=== PATIENT | male | born 1965 | race Caucasian/White ===

== ENCOUNTER 2019-04-13 12:52 | Emergency (ER) | payer MEDICAID, OTHER ==
[~2019-04-13] VITALS: Ht 170.2 cm; Wt 79.4 kg
[~2019-04-13 12:52] MED LIST: VICODIN; [UNRECOGNIZED DRUG - OTHER]
[2019-04-13 17:43] LABS: Urine Bacteria NONE SEEN /hpf (None Seen); Urine Blood Negative /uL (Negative); Urine Specific Gravity 1.012 (1.001-1.035); Urine WBC 1 /hpf (0 - 3)
[2019-04-13 18:40] VITALS: BP 134/92
== END 2019-04-13 18:44 | disposition home or self-care (01) ==
LOC: ER 12:52
DX: K40.90 Unilateral inguinal hernia, without obstruction or gangrene, not specified as recurrent (principal); F17.210 Nicotine dependence, cigarettes, uncomplicated; Z86.711 Personal history of pulmonary embolism; Z87.442 Personal history of urinary calculi; Z98.61 Coronary angioplasty status
CPT/HCPCS: 74176; 81001; 93005

== ENCOUNTER 2019-07-03 22:16 | Emergency (ER) | payer MEDICAID, OTHER ==
[~2019-07-03] VITALS: Ht 172.7 cm; Wt 72.6 kg
[2019-07-03 23:28] LABS: Basophils # (auto) 0 uL; Basophils % (auto) 0.6 % (0.0-2.0); Eosinophils # (auto) 0 uL; Eosinophils % (auto) 0.1 % (0.0-7.0); Hematocrit 42.3 % (41.0-53.0); Hemoglobin 14.6 g/dL (13.5-17.5); Lymphocytes # (auto) 0.8 uL; Lymphocytes % (auto) 10.6 % (10.0-50.0); Mean Corpuscular Hemoglobin 30.9 pg (28.0-32.0); Mean Corpuscular Hgb Conc. 34.4 g/dL (32.0-36.0); Mean Corpuscular Volume 89.9 fL (80.0-100.0); Monocytes # (auto) 0.4 uL; Monocytes % (auto) 5.4 % (0.0-12.0); Neutrophils # (auto) 6.4 uL; Neutrophils % (auto) 83.3 % (37.0-80.0); Platelet Count (auto) 153 10^3/uL (140-450); Red Blood Cells 4.71 10^6/uL (4.5-5.90); Red Cell Distribution Width 12.8 % (11.8-14.3); White Blood Cell 7.7 10^3/uL (4.4-10.8)
[2019-07-03 23:49] LABS: Albumin 3.7 g/dL (3.4-5.0); Anion Gap 7 (5-15); Blood Urea Nitrogen 12 mg/dL (7-18); Calcium 8.6 mg/dL (8.5-10.1); Carbon Dioxide 27 mmol/L (21-32); Chloride 106 mmol/L (98-107); GFR African American 112 mL/min; GFR Non-African American 92 mL/min; Glucose 152 mg/dL (74-106); Magnesium 1.6 mg/dL (1.6-2.6); Potassium 3.2 mmol/L (3.5-5.1); Sodium 140 mmol/L (136-145)
[2019-07-04 00:02] LABS: Alanine Aminotransferase 32 U/L (16-61); Alkaline Phosphatase 78 U/L (45-117); Aspartate Aminotransferase 37 U/L (15-37); Total Protein 7.1 g/dL (6.4-8.2)
[2019-07-04 01:03] LABS: Urine Bacteria NONE SEEN /hpf (None Seen); Urine Blood TRACE /uL (Negative); Urine Mucus FEW (None Seen); Urine Specific Gravity 1.021 (1.001-1.035); Urine WBC 6 /hpf (0 - 3)
[2019-07-04 01:17] LABS: Amphetamine Screen, Urine POSITIVE (NEGATIVE); Benzodiazephine Screen, Urine NEGATIVE (NEGATIVE); Cannabinoid Screen, Urine NEGATIVE (NEGATIVE); Cocaine Screen, Urine NEGATIVE (NEGATIVE)
[2019-07-04 01:24] LABS: Barbiturate Scree,Urine NEGATIVE (NEGATIVE); Opiate Scree,Urine NEGATIVE (NEGATIVE); Phencyclidine Screen, Urine NEGATIVE (NEGATIVE)
[2019-07-04] MEDS ORDERED: SODIUM CHLORIDE 0.9% 1,000 ML IV ONE ×2 (02:00→02:45)
[2019-07-04] MEDS ORDERED: LORazepam 0.5 MG TAB PO ONE (02:45)
[2019-07-04 03:06] VITALS: BP 175/98
== END 2019-07-04 03:54 | disposition home or self-care (01) ==
LOC: ER 22:16 → EDBD 22:16 → UNDOADMIN 22:17 → OVERFLOW 22:17 → ER 07-04 01:50
DX: F15.980 Other stimulant use, unspecified with stimulant-induced anxiety disorder (principal); R00.0 Tachycardia, unspecified; I10 Essential (primary) hypertension; F17.210 Nicotine dependence, cigarettes, uncomplicated
CPT/HCPCS: 36415; 71045; 80053; 80307; 81001; 83735; 83880; 84484; 85025; 85379; 93005; 99284; J7030

== ENCOUNTER 2019-07-05 18:09 | Emergency (ER) | payer MEDICAID ==
[~2019-07-05] VITALS: Ht 162.6 cm; Wt 63.5 kg
[2019-07-05 18:54] LABS: Basophils # (auto) 0 uL; Eosinophils # (auto) 0 uL; Hematocrit 48.5 % (41.0-53.0); Hemoglobin 16.4 g/dL (13.5-17.5); Lymphocytes # (auto) 0.6 uL; Lymphocytes % (auto) 3.1 % (10.0-50.0); Mean Corpuscular Hemoglobin 30.6 pg (28.0-32.0); Mean Corpuscular Hgb Conc. 33.7 g/dL (32.0-36.0); Mean Corpuscular Volume 90.8 fL (80.0-100.0); Monocytes # (auto) 0.8 uL; Monocytes % (auto) 4.3 % (0.0-12.0); Neutrophils # (auto) 17.9 uL; Neutrophils % (auto) 92.6 % (37.0-80.0); Platelet Count (auto) 203 10^3/uL (140-450); Red Blood Cells 5.35 10^6/uL (4.5-5.90); Red Cell Distribution Width 13.1 % (11.8-14.3); White Blood Cell 19.3 10^3/uL (4.4-10.8)
[2019-07-05 19:15] LABS: Albumin 4.3 g/dL (3.4-5.0); Potassium 3.5 mmol/L (3.5-5.1)
[2019-07-05 19:19] LABS: BUN/Creatinine Ratio 10.8; Bilirubin, Total 1.7 mg/dL (0.2-1.0); Total Protein 8.6 g/dL (6.4-8.2)
[2019-07-06] MEDS ORDERED: LORazepam 0.5 MG TAB PO ONE (01:15)
[2019-07-06] MEDS ORDERED: LORazepam 0.5 MG TAB ONE (01:18)
[2019-07-06 02:08] LABS: Urine Bacteria FEW /hpf (None Seen); Urine Blood 3+ /uL (Negative); Urine Hyaline Cast MANY /lpf (0 - 2); Urine Mucus FEW (None Seen); Urine Specific Gravity 1.016 (1.001-1.035); Urine WBC 5 /hpf (0 - 3)
[2019-07-06 02:09] LABS: Alcohol, Urine < 3.0 mg/dL (0-5); Amphetamine Screen, Urine POSITIVE (NEGATIVE); Barbiturate Scree,Urine NEGATIVE (NEGATIVE); Benzodiazephine Screen, Urine NEGATIVE (NEGATIVE); Cannabinoid Screen, Urine NEGATIVE (NEGATIVE); Cocaine Screen, Urine NEGATIVE (NEGATIVE); Opiate Scree,Urine NEGATIVE (NEGATIVE); Phencyclidine Screen, Urine NEGATIVE (NEGATIVE)
[2019-07-06 08:13] VITALS: BP 133/81
== END 2019-07-06 10:05 | disposition home or self-care (01) ==
LOC: ER 18:09 → EDBD 18:09 → ER 07-06 10:05
DX: F10.129 Alcohol abuse with intoxication, unspecified (principal); F19.90 Other psychoactive substance use, unspecified, uncomplicated; I10 Essential (primary) hypertension; F17.210 Nicotine dependence, cigarettes, uncomplicated; Z88.8 Allergy status to other drugs, medicaments and biological substances; Z88.5 Allergy status to narcotic agent; Y90.0 Blood alcohol level of less than 20 mg/100 ml
CPT/HCPCS: 36415; 71045; 76705; 80053; 80307; 80320; 81001; 85025; 87040; 87086

== ENCOUNTER 2020-06-18 13:27 | Emergency (ER) | payer MEDICAID ==
[~2020-06-18] VITALS: Ht 172.7 cm; Wt 77.1 kg
[2020-06-18 13:45] VITALS: BP 127/96
[2020-06-18] MEDS ORDERED: KETOROLAC TROMETH 60MG/2ML VIAL IM ONE (16:15)
== END 2020-06-18 16:56 | disposition home or self-care (01) ==
LOC: ER 13:27
DX: G44.319 Acute post-traumatic headache, not intractable (principal); M50.30 Other cervical disc degeneration, unspecified cervical region; M54.12 Radiculopathy, cervical region; I10 Essential (primary) hypertension; Z87.442 Personal history of urinary calculi
CPT/HCPCS: 70450; 72040; 96372; 99284; J1885

== ENCOUNTER 2020-09-02 10:02 | Emergency (ER) | payer MEDICAID ==
[~2020-09-02] VITALS: Ht 172.7 cm; Wt 72.6 kg
[2020-09-02] MEDS ORDERED: THIAMINE 100mg/ml INJ (200mg/2ml VIAL) IV ONE (10:45)
[2020-09-02] MEDS ORDERED: SODIUM CHLORIDE 0.9% 1,000 ML IVB ONE (10:45)
[2020-09-02 13:27] LABS: Urine Bacteria NONE SEEN /hpf (None Seen); Urine Blood TRACE /uL (Negative); Urine Specific Gravity 1.006 (1.001-1.035); Urine WBC <1 /hpf (0 - 3)
[2020-09-02 13:45] LABS: Amphetamine Screen, Urine NEGATIVE (NEGATIVE); Barbiturate Scree,Urine NEGATIVE (NEGATIVE); Benzodiazephine Screen, Urine NEGATIVE (NEGATIVE); Cannabinoid Screen, Urine NEGATIVE (NEGATIVE); Cocaine Screen, Urine NEGATIVE (NEGATIVE); Opiate Scree,Urine NEGATIVE (NEGATIVE); Phencyclidine Screen, Urine NEGATIVE (NEGATIVE)
[2020-09-02 15:45] VITALS: BP 117/76
== END 2020-09-02 16:45 | disposition left against medical advice (07) ==
LOC: ER 10:02 → EDBD 10:02 → EDUNIT# 10:02 → ER 16:45
DX: F10.129 Alcohol abuse with intoxication, unspecified (principal); E86.0 Dehydration; F17.210 Nicotine dependence, cigarettes, uncomplicated; Z87.442 Personal history of urinary calculi; Y90.8 Blood alcohol level of 240 mg/100 ml or more
CPT/HCPCS: 36415; 71045; 80307; 80320; 81001; 96361; 96374; 99284; J3411; J7030; 93005

== ENCOUNTER 2023-04-01 09:58 | Emergency (ER) | payer MEDICAID ==
[~2023-04-01] VITALS: Ht 170.2 cm; Wt 76.7 kg
[2023-04-01 13:18] VITALS: TEMP 99.1; O2SAT 99
[2023-04-01] MEDS ORDERED: ONDANSETRON ODT 4 MG TAB PO ONE (14:00)
[2023-04-01] MEDS ORDERED: MORPHINE SULFATE INJ 2 MG/ml SYRG IM ONE (14:00)
[2023-04-01 14:17] VITALS: BP 153/96; PULSE 90; RESP 18
[2023-04-01] MEDS ORDERED: HYDR-4798 PO (14:39)
== END 2023-04-01 14:53 | disposition home or self-care (01) ==
LOC: ER 09:58
DX: G89.29 Other chronic pain (principal); M54.50 Low back pain, unspecified; I10 Essential (primary) hypertension; I26.99 Other pulmonary embolism without acute cor pulmonale; F17.210 Nicotine dependence, cigarettes, uncomplicated; Z87.442 Personal history of urinary calculi; Z98.890 Other specified postprocedural states; Z79.1 Long term (current) use of non-steroidal anti-inflammatories (NSAID); Z79.899 Other long term (current) drug therapy
CPT/HCPCS: 96372; 99283; J2270; Q0162

== ENCOUNTER 2023-04-09 08:15 | Emergency (ER) | payer MEDICAID ==
[~2023-04-09] VITALS: Ht 170.2 cm; Wt 78.0 kg
[~2023-04-09 08:15] MED LIST changes: +HYDR-4798 PO
[2023-04-09 08:23] VITALS: BP 104/60; TEMP 98.8
[2023-04-09 08:26] VITALS: PULSE 115; RESP 18; O2SAT 96
[2023-04-09] MEDS ORDERED: HYDROcodone-ACET 10/325MG TAB PO ONE (09:00)
[2023-04-09] MEDS ORDERED: HYDR-4072 PO (09:24)
== END 2023-04-09 09:36 | disposition home or self-care (01) ==
LOC: ER 08:15
DX: G89.29 Other chronic pain (principal); M54.9 Dorsalgia, unspecified; F17.210 Nicotine dependence, cigarettes, uncomplicated; I10 Essential (primary) hypertension; Z87.442 Personal history of urinary calculi; Z76.0 Encounter for issue of repeat prescription

== ENCOUNTER 2023-04-20 11:57 | Emergency (ER) | payer MEDICAID ==
[~2023-04-20] VITALS: Ht 170.2 cm; Wt 74.4 kg
[~2023-04-20 11:57] MED LIST changes: +HYDR-4072 PO
[2023-04-20] MEDS ORDERED: HYDROcodone-ACET 10/325MG TAB PO ONE (13:15)
[2023-04-20] MEDS ORDERED: HYDR-4798 PO (13:19)
[2023-04-20 13:31] VITALS: BP 115/80; PULSE 85; RESP 18; O2SAT 99
== END 2023-04-20 13:33 | disposition home or self-care (01) ==
LOC: ER 11:57
DX: G89.29 Other chronic pain (principal); M54.50 Low back pain, unspecified; I10 Essential (primary) hypertension; F17.210 Nicotine dependence, cigarettes, uncomplicated; Z76.0 Encounter for issue of repeat prescription; Z79.899 Other long term (current) drug therapy

== ENCOUNTER 2023-08-01 15:50 | Emergency (ER) | payer MEDICAID ==
[~2023-08-01] VITALS: Ht 172.7 cm; Wt 77.2 kg
[2023-08-01 16:55] VITALS: BP 145/95; PULSE 115; RESP 18; TEMP 98.6; O2SAT 99
[2023-08-01] MEDS ORDERED: HYDROcodone-ACET 5/325MG TAB PO ONE (17:00)
[2023-08-01] MEDS ORDERED: TRAM50TA2 PO ×2 (17:11→17:13)
== END 2023-08-01 17:36 | disposition home or self-care (01) ==
LOC: EDBD 15:50 → ER 15:50
DX: S82.831A Other fracture of upper and lower end of right fibula, initial encounter for closed fracture (principal); I10 Essential (primary) hypertension; F17.210 Nicotine dependence, cigarettes, uncomplicated; Z79.899 Other long term (current) drug therapy; X50.1XXA Overexertion from prolonged static or awkward postures, initial encounter; Y93.89 Activity, other specified; Y92.89 Other specified places as the place of occurrence of the external cause; Y99.8 Other external cause status
CPT/HCPCS: 29515; 73610

== ENCOUNTER 2023-11-17 09:58 | Inpatient (IN) | payer MEDICAID ==
[~2023-11-17] VITALS: Ht 170.2 cm; Wt 70.0 kg
[~2023-11-17 09:58] MED LIST changes: +TRAM50TA2 PO
[2023-11-17 10:29] VITALS: PULSE 116; RESP 14; O2SAT 98
[2023-11-17 10:36] LABS: Basophils # (auto) 0 10 ^3/uL (0-0.2); Basophils % (auto) 0.4 % (0.0-2.0); Eosinophils # (auto) 0.1 10 ^3/uL (0-0.8); Eosinophils % (auto) 0.7 % (0.0-7.0); Hematocrit 47.5 % (41.0-53.0); Hemoglobin 16.3 g/dL (13.5-17.5); Lymphocytes # (auto) 2.3 10 ^3/uL (0.4-5.4); Lymphocytes % (auto) 25.8 % (10.0-50.0); Mean Corpuscular Hgb Conc. 34.2 g/dL (32.0-36.0); Mean Corpuscular Volume 90.5 fL (80.0-100.0); Monocytes # (auto) 0.4 10 ^3/uL (0-1.3); Monocytes % (auto) 4.5 % (0.0-12.0); Neutrophils % (auto) 68.6 % (37.0-80.0); Nucleated Red Blood Cells % 0.1 %; Red Blood Cells 5.25 10^6/uL (4.5-5.90); Red Cell Distribution Width 12.9 % (11.8-14.3); White Blood Cell 8.7 10^3/uL (4.4-10.8)
[2023-11-17 11:05] LABS: Alanine Aminotransferase 23 U/L (7-40); Albumin 4.8 g/dL (3.2-4.8); Alkaline Phosphatase 72 U/L (46-116); Anion Gap 7 (5-15); Aspartate Aminotransferase 23 U/L (13-40); BUN/Creatinine Ratio 9.6 (10.0-20.0); Blood Urea Nitrogen 11 mg/dL (9-23); Calcium 9.6 mg/dL (8.5-10.1); Carbon Dioxide 28 mmol/L (20-30); Chloride 105 mmol/L (98-107); Glucose 127 mg/dL (74-106); Potassium 3.3 mmol/L (3.5-5.1); Sodium 140 mmol/L (136-145)
[2023-11-17 11:06] LABS: Bilirubin, Total 0.9 mg/dL (0.2-1.0); Total Protein 7.3 g/dL (5.7-8.2)
[2023-11-17] MEDS: ONDANSETRON HCL 4 MG/2 ML VIAL IV ONE (11:40)
[2023-11-17] MEDS: MORPHINE SULFATE 4 MG/ML SYR/VIAL IV ONE (11:41)
[2023-11-17] MEDS: POTASSIUM EFFERVESENT TAB 25 MEQ PO ONE (12:28)
[2023-11-17] MEDS: ASPirin 325 MG TAB PO ONE (12:28)
[2023-11-17] MEDS ORDERED: MORPHINE SULFATE INJ 2 MG/ml SYRG IV PRN (13:15)
[2023-11-17] MEDS ORDERED: ACETAMINOPHEN 325 MG TAB PO PRN (13:15)
[2023-11-17] MEDS: LOSARTAN POTASSIUM 50 MG TAB PO SCH (13:15)
[2023-11-17] MEDS ORDERED: NITROGLYCERIN 0.4 MG SL TAB SL PRN (13:15)
[2023-11-17] MEDS: HYDROcodone-ACET 5/325MG TAB PO PRN (15:05)
[2023-11-17 20:00] VITALS: PULSE 90; RESP 13; O2SAT 95
[2023-11-17] MEDS: METOPROLOL TARTRATE 25 MG TAB PO SCH (22:00)
[2023-11-18 00:09] VITALS: BP 132/81; PULSE 74; RESP 18; TEMP 98; O2SAT 96
[2023-11-18 05:46] LABS: Basophils # (auto) 0 10 ^3/uL (0-0.2); Basophils % (auto) 0.4 % (0.0-2.0); Eosinophils # (auto) 0.2 10 ^3/uL (0-0.8); Eosinophils % (auto) 2.3 % (0.0-7.0); Hematocrit 42.5 % (41.0-53.0); Hemoglobin 14.4 g/dL (13.5-17.5); Lymphocytes # (auto) 2.9 10 ^3/uL (0.4-5.4); Lymphocytes % (auto) 38.1 % (10.0-50.0); Mean Corpuscular Hemoglobin 31.4 pg (28.0-32.0); Mean Corpuscular Hgb Conc. 33.9 g/dL (32.0-36.0); Mean Corpuscular Volume 92.5 fL (80.0-100.0); Monocytes # (auto) 0.4 10 ^3/uL (0-1.3); Monocytes % (auto) 4.9 % (0.0-12.0); Neutrophils # (auto) 4.1 10 ^3/uL (1.6-8.6); Neutrophils % (auto) 54.3 % (37.0-80.0); Nucleated Red Blood Cells % 0.1 %; Red Blood Cells 4.59 10^6/uL (4.5-5.90); Red Cell Distribution Width 12.4 % (11.8-14.3); White Blood Cell 7.6 10^3/uL (4.4-10.8)
[2023-11-18 06:01] LABS: Alanine Aminotransferase 14 U/L (7-40); Alkaline Phosphatase 60 U/L (46-116); Anion Gap 4 (5-15); BUN/Creatinine Ratio 10.2 (10.0-20.0); Blood Urea Nitrogen 11 mg/dL (9-23); Carbon Dioxide 28 mmol/L (20-30); Chloride 106 mmol/L (98-107); Glucose 103 mg/dL (74-106); LDL Cholesterol 84 mg/dL (< 100); Potassium 3.5 mmol/L (3.5-5.1); Sodium 138 mmol/L (136-145); Triglycerides 127 mg/dL (< 150)
[2023-11-18 06:02] LABS: Albumin 3.8 g/dL (3.2-4.8); Aspartate Aminotransferase 19 U/L (13-40); Bilirubin, Total 0.8 mg/dL (0.2-1.0); Cholesterol 144 mg/dL (< 200); HDL Cholesterol 48 mg/dL (40-59); Total Protein 6.1 g/dL (5.7-8.2)
[2023-11-18 08:00] VITALS: PULSE 78; PULSE 82
[2023-11-18] MEDS: ENOXAPARIN SOD 40 MG/0.4 ML SYRINGE SC SCH (10:00)
[2023-11-18 11:22] VITALS: BP 120/86; PULSE 78; RESP 16; TEMP 98.5; O2SAT 97
[2023-11-18 13:00] VITALS: BP 122/74; PULSE 53; RESP 17; TEMP 98.1; O2SAT 97
[2023-11-18] MEDS ORDERED: MET25T PO (13:20)
[2023-11-18] MEDS ORDERED: LOSA-534 PO (13:20)
[2023-11-18 15:58] VITALS: BP 125/78; PULSE 62; RESP 17; TEMP 98.1; O2SAT 97
[2023-11-18 16:45] VITALS: BP 124/83; PULSE 69; RESP 18; TEMP 98.1; O2SAT 97
== END 2023-11-18 17:20 | disposition home or self-care (01) | DRG 199 ==
LOC: ER 09:58 → TELE 13:04 → TELE-WESTW 22:37
PROVIDERS: ADMIT Nurse Practitioner; ATTEND Nurse Practitioner
DX: I16.0 Hypertensive urgency (principal); E87.6 Hypokalemia; I25.10 Atherosclerotic heart disease of native coronary artery without angina pectoris; I10 Essential (primary) hypertension; F17.210 Nicotine dependence, cigarettes, uncomplicated; Z79.899 Other long term (current) drug therapy; Z86.711 Personal history of pulmonary embolism; Z87.442 Personal history of urinary calculi; Z95.5 Presence of coronary angioplasty implant and graft
CPT/HCPCS: 36415; 71045; 80053; 80061; 84484; 85025; 85379; 93005; 93306; 96374; 96375; G0378; J2405